=== PATIENT | female | born 1970 | race Caucasian/White ===

== ENCOUNTER → 2023-12-01 13:48 | Outpatient (REF) | payer OTHER, SELFPAY | LOC: HWRAD 13:48 | PROVIDERS: ATTENDING PHYSICIAN Internal Medicine Endocrinology, Diabetes & Metabolism; FAMILY PHYSICIAN Family Medicine | DX: E05.90 Thyrotoxicosis, unspecified without thyrotoxic crisis or storm (principal) | CPT/HCPCS: 76536 ==